=== PATIENT | male | born 1950 | race Caucasian/White ===

== ENCOUNTER 2017-10-08 10:43 | Emergency (ER) | payer OTHER ==
[2017-10-08] MEDS: ACETAMINOPHEN 325 MG TAB PO (11:33)
== END 2017-10-08 13:50 | disposition home or self-care (01) ==
LOC: FTE 10:43
DX: S70.02XA Contusion of left hip, initial encounter (principal); W11.XXXA Fall on and from ladder, initial encounter; Y92.9 Unspecified place or not applicable; Z85.46 Personal history of malignant neoplasm of prostate
CPT/HCPCS: 71045; 72100; 73510; 99284-25

== ENCOUNTER 2017-12-08 18:02 | Emergency (ER) | payer OTHER ==
[2017-12-08 19:13] LABS: URINE BLOOD (Dip) POC 1+ (NEGATIVE); URINE KETONES (Dip) POC Negative (NEGATIVE); URINE LEUKOCYTE EST (Dip) POC Negative (NEGATIVE); URINE NITRITE (Dip) POC Negative (NEGATIVE); URINE TOTAL PROTEIN POC Negative (NEGATIVE)
[2017-12-08 19:13] LABS: URINE PH (Dip) POC 5.5 (5.0-8.5)
[2017-12-08] MEDS: SILVER SULFADIAZINE 1% 25 GM CR TOP (19:29)
== END 2017-12-08 20:06 | disposition home or self-care (01) ==
LOC: FTE 18:02
DX: T23.202A Burn of second degree of left hand, unspecified site, initial encounter (principal); X19.XXXA Contact with other heat and hot substances, initial encounter; Y92.9 Unspecified place or not applicable; Z85.46 Personal history of malignant neoplasm of prostate
CPT/HCPCS: 16000; 76536; 81003; 99284-25